=== PATIENT | female | born 1950 ===

== ENCOUNTER 2025-06-24 06:00 | Day surgery (SDC) | payer OTHER ==
[2025-06-24] MEDS ORDERED: GENTAMICIN SULFATE 40 MG/ML VIAL ONE (07:23)
[2025-06-24] MEDS ORDERED: CHLORHEXIDINE GLUCONATE 120 ML BOTTLE TOP ONE (07:24)
[2025-06-24] MEDS ORDERED: CEFAZOLIN SODIUM 1,000 MG VIAL ONE (07:24)
[2025-06-24] MEDS ORDERED: LIDOCAINE HCL 1%/EPINEPHRINE 20ML VIAL IJ ONE (07:24)
== END 2025-06-24 08:31 | disposition home or self-care (01) ==
LOC: CIR.AMB 06:00
PROVIDERS: ATTEND Obstetrics & Gynecology Gynecology
DX: N81.5 Vaginal enterocele (principal); Z53.09 Procedure and treatment not carried out because of other contraindication

== ENCOUNTER 2025-07-01 08:00 | Day surgery (SDC) | payer OTHER ==
[2025-07-01] MEDS ORDERED: GENTAMICIN SULFATE 40 MG/ML VIAL IR ONE (13:30)
[2025-07-01] MEDS ORDERED: CEFAZOLIN SODIUM 1,000 MG VIAL IV ONE (13:30)
[2025-07-01] MEDS ORDERED: MACROBID 100 M100 MG PO (13:36)
== END 2025-07-01 20:50 | disposition home or self-care (01) ==
LOC: CIR.AMB 08:00
PROVIDERS: ATTEND Obstetrics & Gynecology Gynecology
DX: N81.11 Cystocele, midline (principal); N81.6 Rectocele; N81.5 Vaginal enterocele; N89.8 Other specified noninflammatory disorders of vagina; T83.89XA Other specified complication of genitourinary prosthetic devices, implants and grafts, initial encounter